=== PATIENT | female | born 1955 ===

== ENCOUNTER 2018-06-04 14:02 | Outpatient (CLI) | payer OTHER ==
[~2018-06-04] VITALS: Ht 162.6 cm; Wt 68.0 kg
== END 2018-06-04 14:20 | disposition home or self-care (01) ==
LOC: OFIC 805 14:02
DX: R22.1 Localized swelling, mass and lump, neck (principal); J35.01 Chronic tonsillitis

== ENCOUNTER 2019-01-24 11:46 | Outpatient (CLI) | payer OTHER ==
[~2019-01-24] VITALS: Ht 152.4 cm; Wt 68.0 kg
== END 2019-01-24 12:00 | disposition home or self-care (01) ==
LOC: OFIC 805 11:46
DX: J03.80 Acute tonsillitis due to other specified organisms (principal); R22.1 Localized swelling, mass and lump, neck; E03.8 Other specified hypothyroidism